=== PATIENT | female | born 1950 | race Hispanic/Latino ===

== ENCOUNTER → 2021-03-14 | Outpatient (CLI) | payer MEDICARE | LOC: MAMMO 10:59 | PROVIDERS: ATTEND Family Medicine | DX: Z12.31 Encounter for screening mammogram for malignant neoplasm of breast (principal); M81.0 Age-related osteoporosis without current pathological fracture; M85.88 Other specified disorders of bone density and structure, other site | CPT/HCPCS: 77067; 77080 ==

== ENCOUNTER → 2022-03-27 | Outpatient (CLI) | payer MEDICARE | LOC: MAMMO 10:42 | PROVIDERS: ATTEND Family Medicine | DX: Z12.31 Encounter for screening mammogram for malignant neoplasm of breast (principal) | CPT/HCPCS: 77067 ==